=== PATIENT | female | born 1935 | race Caucasian/White ===

== ENCOUNTER 2018-11-22 22:37 | Inpatient (IN) ==
[2018-11-23] MEDS ORDERED: ZOFRAN IV PRN (03:14)
[2018-11-23] MEDS ORDERED: TYLENOL PO PRN (03:14)
[2018-11-23] MEDS: HUMALOG SUBQ SCH ×4 (06:18→22:52)
[2018-11-23] MEDS: SYNTHROID PO SCH (06:45)
[2018-11-23 06:48] LABS: URINE SOURCE CATH
[2018-11-23 06:52] LABS: BILIRUBIN URINE NEGATIVE (NEGATIVE); BLOOD URINE NEGATIVE (NEGATIVE); COLOR YELLOW; GLUCOSE URINE NEGATIVE (NEGATIVE); KETONE URINE NEGATIVE (NEGATIVE); LEUKOCYTES URINE LARGE (NEGATIVE); NITRITE URINE NEGATIVE (NEGATIVE); PH URINE 8.5; PROTEIN URINE TRACE mg/dL (NEGATIVE); SP GRAVITY URINE 1.012; TURBIDITY URINE HAZY (CLEAR); UROBILINOGEN URINE NORMAL (NORMAL)
[2018-11-23 06:53] LABS: UR EPITHELIAL CELLS <10 /HPF (<10); URINE BACTERIA 4+ /HPF; URINE RBC <10 /HPF (<10); URINE WBC TNTC /HPF (<10)
[2018-11-23 07:54] LABS: BASO# 0.03 X1000 (0.0-0.2); BASO% 0.5 % (0.0-0.8); HEMATOCRIT 28.7 % (37.0-47.0); IMM GRAN# 0.28 X1000 (0.0-0.04); IMM GRAN% 4.4 % (0.0-0.5); LYMPH# 1.01 X1000 (1.2-3.4); MCHC 34.8 g/dL (33-37); MCV 94.7 FL (81-99); MONO# 0.38 X1000 (0.11-0.59); NEUT% 73.1 % (42.2-75.2); PLT 176 X1000 (130-400); RBC 3.03 XMIL (4.2-5.4); RDW 20.7 % (11.5-14.5)
[2018-11-23 08:10] LABS: AGAP 10; ALB/GLOB RATIO 1.5; ALBUMIN 3.1 g/dL (3.5-5.0); ALKALINE PHOSPHATASE 52 U/L (32-104); BUN 16 mg/dL (8-22); CALCIUM 7.9 mg/dL (8.8-10.2); CHLORIDE 105 mmol/L (98-107); COSMO 283; CREATININE 0.4 mg/dL (0.5-0.9); ESTIMATED GFR > 60; GLUCOSE 75 mg/dL (70-104); GOT 25 U/L (10-30); GPT 45 U/L (10-36); POTASSIUM 4.2 mmol/L (3.5-5.1); SODIUM 142 mmol/L (136-145); TCO2 27 mmol/L (25-35); TOTAL BILIRUBIN 0.87 mg/dL (0.20-1.00); TOTAL PROTEIN 5.1 g/dL (6.3-8.3)
--- NOTE | 2018-11-23 08:18 | HISTORY AND PHYSICAL ---
PRIMARY CARE PROVIDER: Dr. Román Mcintyre. ONCOLOGIST: Dr. Dias. CHIEF COMPLAINT: Constipation. HISTORY OF PRESENT ILLNESS: Ms. Crawford is an 83-year-old, female who has just been recently diagnosed, approximately 2 months ago, with a glioblastoma. She is currently receiving oral chemotherapy and radiation. She reports her last radiation treatment was on Thursday, which would be November 19. The patient's daughter reports that up until she started treatment for her glioblastoma, she had not had any previous problems with constipation, though this has been a recent issue. She was previously placed on Linzess by Dr. Mcintyre. The daughter states for 4 days, she has not been able to have a bowel movement. They have tried medications at home of Fleet enemas, her Linzess as previously mentioned. They ultimately presented to the ER at [facility] for further evaluation of this. She was seen in the ER on November 22 earlier in the day, approximately around noon. They did perform an abdominal x-ray which showed an average amount of stool in the descending colon and the left transverse colon. There was no obstructive pattern noted and no large volume of free abdominal gas. They ultimately did perform a CT of the abdomen and pelvis which showed constipation and diverticulosis. She was discharged home with medications of magnesium citrate and MiraLAX. Patient's daughter states that after they were discharged from the ER, she did go ahead and take the magnesium citrate and the MiraLAX as well. This was done approximately around 1700, though did not have any reported bowel movements. They did contact Dr. Mcintyre and made him aware. Dr. Mcintyre did contact Dr. José and the patient was accepted as a direct admission to the hospitalist service. The patient denied any abdominal pain. She reportedly, as previously mentioned, has not had a bowel movement in four days. Prior to this, they denied her having any diarrhea. She denies any nausea or vomiting. There are no reports of hematochezia or melena. She denies any headache, dizziness, chest pain, shortness of breath, or cough. She denied any dysuria, though her daughter did state that she does have urinary frequency, though does take Lasix. She reports that recently, the patient has been more fatigued and to help with her not having to get up to go to the bathroom as much, they had been letting her wear a brief, though she is able to control bladder and bowel. The patient does have some swelling in bilateral extremities for which she was placed on steroids related to treatment for her glioblastoma. Her daughter states the swelling in her bilateral extremities is slightly worse than it had been previously. The patient denied any fever, body aches, or chills. She is alert and oriented to person and place, though not time. She could not state what month it was. She also did have difficulty remembering her daughter's name. The patient's daughter states this is not like her, that normally she is alert and oriented to person, place, time, situation, and is able to recognize her and does know her name, that this is something new that had not occurred before. Other than the constipation that was previously diagnosis with a CT, the patient, on her labs that were performed in the ER at [facility], did have an elevated lipase of 183, though there was no finding from a CT suggestive of pancreatitis. The patient is not reporting any abdominal pain. At this time, is not having nausea or vomiting. Also, she was noted to have a urinalysis that was positive for nitrites, 1 white blood cell, and 2+ bacteria. She has placed for inpatient admission. REVIEW OF SYSTEMS: A 14 point review of systems was conducted with the patient and all were negative except for pertinent positives as mentioned in the above HPI. PAST MEDICAL HISTORY: 1. Recent diagnosis with a glioblastoma 2 months ago. Currently receiving radiation and oral chemotherapy. Followed by Dr. Dias. 2. Hypertension. 3. Dyslipidemia. 4. Gastroesophageal reflux disease. 5. Hypothyroidism. 6. Generalized osteoarthritis. 7. History of paroxysmal atrial fibrillation. 8. Macular degeneration. 9. Recent swelling in bilateral lower extremities after receiving steroids related to treatment for her glioblastoma. 10. Anxiety. 11. Diabetes mellitus. PAST SURGICAL HISTORY: 1. Appendectomy. 2. Hysterectomy. 3. Cholecystectomy. 4. Recent biopsy for diagnosis of her glioblastoma. SOCIAL HISTORY: The patient has no known past or present history of tobacco, alcohol, or illicit drug use. She does live at home with her who, unfortunately, does have significant heart- related medical problems and has just recently undergone what I think is an aortic valve replacement. The patient's daughter states that she is the one that usually helps take care of him as well, though other family members do assist with her care as well as his at this time. FAMILY HISTORY: Positive for her mother having a history of acoustic neuromas. Her father with a myocardial infarction at age 52. Her brother had a history of colon cancer. ALLERGIES: The patient has no known allergies. HOME MEDICATIONS: 1. Xanax 0.5 mg p.o. four times a day p.r.n. 2. Aspirin 81 mg p.o. daily. 3. Dexamethasone 2 mg p.o. b.i.d. 4. Diltiazem extended release 90 mg p.o. daily. 5. Fenofibrate 160 mg p.o. daily. 6. Lasix 20 mg p.o. daily p.r.n. 7. Probiotic p.o. daily. 8. Levothyroxine 100 mcg p.o. daily. 9. Linzess 145 mcg p.o. daily. 10. Potassium supplement p.o. daily. 11. Zantac 150 mg p.o. b.i.d. 12. Temodar 125 mg p.o. daily. 13. PreserVision AREDS 1 p.o. b.i.d. DIAGNOSTIC DATA: Would like to note that her laboratory results were obtained on 11/22/2018, though they under her previous account number for her ER visit at [facility]. These were drawn at 1340. White blood cell count is 7930, hemoglobin 10.2, hematocrit 30.2, platelet count is 176,000. Sodium 141, potassium 3.9, chloride 105, serum bicarb was 26, BUN 18, creatinine 0.5, glucose is 152, calcium 7.7. Liver function tests within normal limits. Lipase was 183. A urinalysis was obtained via catheter. It was positive for nitrites, 1+ white blood cells, and bacteria. It was negative for protein, ketones, blood, or yeast. CT of abdomen and pelvis without contrast showed constipation and diverticulosis. PHYSICAL EXAMINATION: VITAL SIGNS: Temperature 97.3 degrees, heart rate 60, respirations 18, blood pressure 131/54, oxygen saturation is 95% on room air. GENERAL: Ms. Crawford is a pleasant, elderly, 83-year-old, female. She was resting in the inpatient bed with her eyes closed. She was easily arousable with verbal stimulation. Once awake, she was alert and oriented to person and place, though not time. She was able to answer questions appropriately and follow commands. HEENT: Head is atraumatic, normocephalic. Pupils are 2 mm bilaterally and brisk. Oral mucosa is moist. Oropharynx is clear. NECK: Supple. Trachea midline. CARDIOVASCULAR: Patient had S1-S2 present. No murmurs, gallops, or rubs appreciated, with a regular rate and rhythm. PULMONARY: Patient has symmetrical chest expansion bilaterally. Lung sounds clear to auscultation in bilateral full kim. ABDOMEN: Soft. Nondistended. The patient did report some mild tenderness in the left upper quadrant area. There was no rebound tenderness noted. Bowel sounds were present in all 4 quadrants, were normoactive. EXTREMITIES: No cyanosis or clubbing present, though the patient does have edema noted to bilateral lower extremities. This is approximately 2+ from knee to ankle and 3+ in her bilateral feet. The radial pulses and pedal pulses were 2+ bilaterally. Pulse, motor, and sensory are intact in all extremities. INTEGUMENTARY: The patient's skin is pink, warm, and dry. NEUROLOGICAL: The patient is, as previously mentioned, sleeping, though was easily arousable with verbal stimulation. She is slightly altered. She was oriented to person and place, though not time and though she did recognize her daughter at bedside, she could not tell us her name. Other than this, there did not appear to be any new focal neurological deficits noted. ASSESSMENT/PLAN: 1. Constipation. The patient was given quite a few medications prior to arriving for inpatient admission at home as well as what she received as prescription in the emergency room earlier in the day. She reportedly, since arriving to the hospital, has had a bowel movement. Given that she is having some bowel movements at this time, we will continue to monitor this throughout the night. We will repeat an x-ray in the morning. We will go ahead and start her with a bowel regimen of Colace and MiraLAX, though if she does not have improvement in x-ray findings, we will go ahead and likely have her start on GoLYTELY. We will continue to follow. 2. Encephalopathy. This may be secondary to her glioblastoma, though the patient did have urine that was positive for nitrites, 1+ white blood cells, and 2+ bacteria. She is not symptomatic at this time. We have placed a urine culture. We are awaiting those results. We will continue to follow. 3. Elevated lipase. We are ruling her out for possible pancreatitis, though the patient did not have any CT findings to suggest this. She is not complaining of any abdominal pain, does not have any nausea or vomiting at this time. We are going to repeat a lipase in the morning. At this time, we do not suspect this is related to pancreatitis at this time. 4. Glioblastoma, currently being treated with radiation and oral chemotherapy. Followed by Dr. Dias. Aware. 5. History of paroxysmal atrial fibrillation. We will continue her Cardizem. 6. Recent diagnosis of a deep venous thrombosis in the left lower extremity on 10/28/2018. Upon further questioning of this with the patient, she was previously taking an 81 mg aspirin by mouth. She was instructed to continue with the aspirin. They did not prescribe her any further anticoagulation. This may be secondary to her recent diagnosis of glioblastoma. Given this, we will not place sequential compression devices on the patient or place her on any anticoagulation therapy. 7. Diabetes mellitus. We have placed the patient on sliding scale lispro insulin. We will do pattern fingerstick blood sugars. 8. She has been placed on the medical floor with telemetry. We will repeat a CBC, CMP, lipase in the morning. We are awaiting urine culture results. We will also repeat a KUB, abdomen, this morning as well to re-evaluate her constipation. Further orders and recommendations pending hospital course, diagnostic studies, and physician evaluation. Dictated by DONNIE Menjivar for Robert José MD
[2018-11-23 08:54] LABS: BANDS 6 % (0-1); LYMPHS 12 % (21-51); MONO 2 % (1-9); NRBC 1 % (0-0); SEGS 80 % (42-75)
[2018-11-23 08:59] LABS: HYPOCHROM 1+
--- NOTE | 2018-11-23 09:18 | Diag Imaging Result Doc PS360 ---
EXAM: KUB ABDOMEN HISTORY: Constipation TECHNIQUE: Abdominal ultrasound COMPARISON: 01/06/2019 FINDINGS: Stool remains in the mid and distal colon. No bowel obstruction. No organomegaly. Mild scoliosis with degenerative spine changes. IMPRESSION: Mild constipation Electronically signed by Maximino Shipman 11/23/2018 9:16 AM
[2018-11-23] MEDS: LASIX PO SCH (09:51)
[2018-11-23] MEDS: DECADRON PO SCH ×2 (09:51→21:32)
[2018-11-23] MEDS: MIRALAX PO SCH (09:51)
[2018-11-23] MEDS: ROCEPHIN 1 GM in NS 50 ML IV SCH (09:51)
[2018-11-23] MEDS: OCUVITE LUTEIN & ZEAXANTHIN PO SCH ×2 (09:52→21:32)
[2018-11-23] MEDS: COLACE PO SCH ×2 (09:52→21:32)
[2018-11-23] MEDS: CARDIZEM PO SCH (09:52)
[2018-11-23] MEDS: CULTURELLE PO SCH (09:52)
[2018-11-23] MEDS: ZANTAC PO SCH ×2 (09:52→21:32)
[2018-11-23] MEDS: LOFIBRA PO SCH (09:52)
[2018-11-23] MEDS: ASPIRIN PO SCH (09:52)
[2018-11-23] MEDS: XANAX PO PRN ×3 (13:17→21:31)
[2018-11-23] MEDS ORDERED: CALMOSEPTINE OINTMENT TOP PRN (13:22)
[2018-11-23] MEDS ORDERED: LIPOSYN 20% 250 ML IV SCH (14:00)
--- NOTE | 2018-11-23 14:48 | PROGRESS NOTE ---
DATE: 11/23/2018 SUBJECTIVE: The patient is resting in bed. Has family present in the room. OBJECTIVE: Vital signs: Vital signs are as follows: Temperature 97.6 degrees, pulse 62, respirations 16, blood pressure 134/52, oxygen saturation is 99%. HEENT: Atraumatic, normocephalic. Cardiovascular system: S1, S2. Respiratory system: Has evidence of good air entry bilaterally. Abdomen: Soft, nontender. No masses. Extremities: No evidence of edema. Central nervous system: No obvious focal deficit noted. LABS: Labs are as follows: WBC 6.3, hematocrit is 28.7 with a platelet count of 176. Sodium is 142, potassium 4.2, chloride is 105, bicarbonate of 27. BUN is 16, creatinine 0.4. ALT is 45. UA shows large amount of leukocytes with numerous WBCs. ASSESSMENT AND PLAN: 1. Encephalopathy, probably secondary to several etiologies, including glioblastoma. The patient's UA showed a picture of possible urinary tract infection. In the meanwhile, we will get a CT scan of the brain, obtain thyroid function test, as well as ammonia level. We will treat for urinary tract infection until we get the culture results back. 2. Constipation. Continue current bowel regimen. Consult Gastroenterology. 3. Elevated lipase level. I doubt if patient does have true pancreatitis. I agree with repeating lipase levels. 4. History of glioblastoma. Consult with Oncology. 5. History of paroxysmal atrial fibrillation. Continue rate controlling agent. 6. Diabetes mellitus. Continue blood sugar monitoring, as well as sliding scale insulin. 7. Deep vein thrombosis prophylaxis. 8. Gastrointestinal prophylaxis. The patient is on ranitidine. cc: Laureano Bueno MD
[2018-11-23] MEDS ORDERED: TPN ELECTROLYTES 20 ML, MAGNESIUM SULFATE 5 MEQ, POTASSIUM CHLORIDE 25 MEQ, SODIUM PHOS... IV SCH ×8 (15:00)
--- NOTE | 2018-11-23 15:14 | Diag Imaging Result Doc PS360 ---
EXAM: CT HEAD W/O CONTRAST INDICATION: encephalopathy TECHNIQUE: This exam was performed using automated exposure control, adjustment of mA or kV according to patient size, and/or use of iterative reconstruction technique. COMPARISON: MRI dated 11/04/2018. No prior CT head is available for comparison. FINDINGS: There is no definite acute infarct given the limited sensitivity of CT versus MRI. There is a known mass in the left parietal lobe that was seen on the recent MRI. It is heterogeneous and very poorly defined on unenhanced CT. There is increased attenuation at its inferior border and decreased attenuation more superiorly. It is difficult to compare to the previous contrast-enhanced MRI, but it appears to be approximately stable given the differences in modalities. There is mild sulcal effacement around the lesion suggesting vasogenic edema. No other discrete mass or intracranial hemorrhage is appreciated. There is no midline shift. There is no hydrocephalus. There is a geri hole in the parietal bone overlying the mass. Surrounding soft tissues and bony structures are essentially unremarkable, otherwise. IMPRESSION: Known left parietal lobe mass seen on previous MRI that is approximately stable given the differences in modalities. Electronically signed by Brown Sears 11/23/2018 3:12 PM
[2018-11-23] MEDS: HALDOL IM PRN (16:03)
[2018-11-23] MEDS ORDERED: XANAX PO SCH (17:00)
[2018-11-23] MEDS: AMITIZA PO SCH (21:32)
[2018-11-24] MEDS: HUMALOG SUBQ SCH ×3 (06:53→17:05)
[2018-11-24] MEDS: SYNTHROID PO SCH (06:53)
[2018-11-24] MEDS: ROCEPHIN 1 GM in NS 50 ML IV SCH (06:53)
[2018-11-24 07:48] LABS: BASO# 0.02 X1000 (0.0-0.2); BASO% 0.3 % (0.0-0.8); HEMATOCRIT 28.9 % (37.0-47.0); HEMOGLOBIN 9.8 g/dL (12.0-16.0); IMM GRAN% 4.1 % (0.0-0.5); LYMPH# 0.69 X1000 (1.2-3.4); LYMPH% 9.3 % (20.5-51.1); MCH 32.6 PG (27-31); MCHC 33.9 g/dL (33-37); MONO# 0.33 X1000 (0.11-0.59); MONO% 4.5 % (1.7-9.3); MPV 10.2 FL (7.4-10.4); NEUT# 6.06 X1000 (1.4-6.5); NEUT% 81.8 % (42.2-75.2); PLT 157 X1000 (130-400); RBC 3.01 XMIL (4.2-5.4); RDW 20.7 % (11.5-14.5)
[2018-11-24 07:58] LABS: AGAP 9; ALB/GLOB RATIO 1.3; ALBUMIN 3.1 g/dL (3.5-5.0); ALKALINE PHOSPHATASE 57 U/L (32-104); BUN 14 mg/dL (8-22); CHLORIDE 106 mmol/L (98-107); COSMO 283; CREATININE 0.4 mg/dL (0.5-0.9); ESTIMATED GFR > 60; GLUCOSE 149 mg/dL (70-104); GOT 17 U/L (10-30); GPT 42 U/L (10-36); POTASSIUM 3.6 mmol/L (3.5-5.1); SODIUM 140 mmol/L (136-145); TCO2 25 mmol/L (25-35); TOTAL BILIRUBIN 0.73 mg/dL (0.20-1.00); TOTAL PROTEIN 5.4 g/dL (6.3-8.3)
[2018-11-24] MEDS: XANAX PO PRN ×2 (08:21→16:15)
[2018-11-24] MEDS: LOFIBRA PO SCH (08:22)
[2018-11-24] MEDS: COLACE PO SCH (08:22)
[2018-11-24] MEDS: CARDIZEM PO SCH (08:22)
[2018-11-24] MEDS: AMITIZA PO SCH (08:22)
[2018-11-24] MEDS: OCUVITE LUTEIN & ZEAXANTHIN PO SCH (08:22)
[2018-11-24] MEDS: CULTURELLE PO SCH (08:22)
[2018-11-24] MEDS: ASPIRIN PO SCH (08:22)
[2018-11-24] MEDS: ZANTAC PO SCH (08:22)
[2018-11-24] MEDS: MIRALAX PO SCH (08:23)
[2018-11-24] MEDS: LASIX PO SCH (08:38)
[2018-11-24] MEDS: DECADRON PO SCH (08:38)
[2018-11-24 08:53] LABS: LYMPHS 8 % (21-51); MONO 2 % (1-9); SEGS 90 % (42-75)
[2018-11-24] MEDS: HALDOL IM PRN ×2 (10:00→16:15)
--- NOTE | 2018-11-24 13:14 | PROGRESS NOTE ---
DATE: 11/24/2018 SUBJECTIVE: The patient resting comfortably in bed. Sensorium seems to be much better. OBJECTIVE: Vital Signs: Temperature 97.5 degrees, pulse 98, respiratory rate 16, blood pressure 154/76, and oxygen saturation 97%. HEENT: Atraumatic, normocephalic. Cardiovascular: S1, S2. Respiratory: Evidence of good air entry bilaterally. Abdomen: Soft, nontender. No masses. Extremities: There is evidence of edema in both lower extremities. Central nervous system: The patient does not have any obvious focal deficits. LABORATORY: WBC 7.4, hematocrit 28.9, and platelet of 137,000. Sodium is 140, potassium 3.6, chloride is 106. Bicarb 25, BUN is 14, creatinine 0.4. ALT is 42. Urine culture positive for gram-negative rods. ASSESSMENT AND PLAN: 1. Encephalopathy most likely secondary to infective process as well as the patient's intracranial neoplastic lesion. We will continue antibiotics for UTI, and await culture and sensitivity. 2. Constipation. Continue current bowel regimen. 3. History of glioblastoma. Oncology following. 4. History of paroxysmal atrial fibrillation. Continue rate controlling agent. 5. Diabetes mellitus. Continue blood sugar medications as well as sliding scale insulin. 6. Deep vein thrombosis prophylaxis. Sequential compression devices. 7. Disposition: Family has indicated that they would like to take patient back home with hospice. We will get palliative care consult, and plan for possible discharge later today. cc: Laureano Bueno MD MTDD
[2018-11-24 16:24] VITALS: BP 132/67
--- NOTE | 2018-11-24 21:43 | DISCHARGE SUMMARY ---
ADMISSION DATE: 11/22/2018 DISCHARGE DATE: 11/24/2018 PRINCIPAL DIAGNOSIS: Encephalopathy, likely related to UTI. SECONDARY DIAGNOSES: 1. Constipation. 2. History of glioblastoma. 3. Paroxysmal atrial fibrillation. 4. Diabetes mellitus. 5. Urinary tract infection. DISCHARGE MEDICATIONS: Include the following: Levaquin 500 mg p.o. once a day, Amitiza 24 mcg p.o. twice a day, levothyroxine 800 mcg p.o. daily, dexamethasone 2 mg p.o. twice a day, Fenofibrate 160 mg p.o. daily, Probiotic 1 p.o. daily, ranitidine 150 mg p.o. twice a day, alprazolam 0.4 mg 4 times a day as needed, aspirin 81 mg p.o. daily, Lasix 20 mg p.o. daily, potassium chloride 99 mg p.o. daily, PreserVision Areds 2 soft gel one twice a day, diltiazem 90 mg p.o. daily, Zofran 8 mg p.o. every 6 to 8 hours as needed. CONSULTATIONS DONE DURING THIS HOSPITAL STAY: Brodie Dias MD, Oncology. PROCEDURES DONE DURING THIS HOSPITAL STAY: Head CT 11/23/2018. HOSPITAL COURSE: Ms. Luba Crawford is an 83-year-old female. She does have a history of glioblastoma, which was diagnosed about 2 months ago. She is currently receiving oral chemotherapy as well as radiation. She was admitted to the hospital because of constipation as well as alteration in her mental status. CT scan of her brain done did not show any acute lesions. Urine culture showed evidence of gram-negative rods. Patient was started on antibiotics. With regard to her constipation, we did optimize her bowel regimen. While receiving care, family indicated that they would like to transition to hospice care. We did obtain a palliative care consult. Family's wishes will be honored. The patient will now be discharged home with hospice care. cc: Laureano Bueno MD [facility]
== END 2018-11-24 18:46 | disposition hospice, home (50) | DRG 690 ==
LOC: SUATTDRO 22:37 → DIRADM 22:37 → 3N 23:10
PROVIDERS: ATTEND Internal Medicine
CPT/HCPCS: 51701; 70450; 74000; 74018; 74176; 80053; 81001; 82140; 82948; 83690; 84439; 84443; 85025; 87077; 87088; 87186; 99284; A9270; J0696; J1630; J1815; J7040; J8540; P9612; XXXXX